=== PATIENT | male | born 1935 | race Caucasian/White ===

== ENCOUNTER 2017-12-16 09:18 | Emergency (ER) | payer MEDICARE, BC ==
[2017-12-16] MEDS ORDERED: LIDOCAINE URO-JET JELLY 2% 5 ML KIT URETHRAL ONE ×3 (09:56→11:27)
--- NOTE | 2017-12-16 10:00 | ED ---
General Adult HPI <AníbalTj - Last Filed: 12/16/17 11:27> - General Source: patient, RN notes reviewed Mode of arrival: wheelchair Limitations: no limitations <Patrick Whitmore - Last Filed: 12/16/17 14:06> - General Chief complaint: Urogenital Stated complaint: Blood in urine Time Seen by Provider: 12/16/17 09:39 - History of Present Illness Initial comments: Patient's an 82-year-old male presenting to the emergency room today with a chief complaint of difficulty urinating. Patient states that he usually self calf. Admits to history of prostate cancer. Patient states that he got up approximately 2 AM to try to self cath at that time was on able to. States that this morning he was able to self cath himself but not a large amount blood out. He does admit to increased pressure pain to the area. They called his urologist Dr. Phipps who advised him come here to [facility]. Patient denies any other complaints or symptoms. States is not on any blood thinners. He does admit that he's had hematuria for the past 3 years and they have been unable to figure out where the blood coming from. Patient admits that he was at [facility] approximately a month ago for the same complaint. Had to have a Lopez catheter left in place for irrigation. Patient denies any recent fever, chills, shortness of breath, chest pain, back pain, abdominal pain, nausea or vomiting, numbness or tingling, dysuria or hematuria, constipation or diarrhea, headaches or visual changes, or any other complaints. (Patrick Whitmore) - Related Data Home Medications Medication Instructions Recorded Confirmed Allopurinol [Zyloprim] 300 mg PO DAILY 12/16/17 12/16/17 Aspirin EC [Ecotrin Low Dose] 81 mg PO DAILY 12/16/17 12/16/17 Calcitriol 0.5 mcg PO MOTUWETHFR 12/16/17 12/16/17 Carvedilol [Coreg] 3.125 mg PO BID 12/16/17 12/16/17 Cholecalciferol [Vitamin D3] 1,000 unit PO DAILY 12/16/17 12/16/17 Furosemide [Lasix] 40 mg PO DAILY 12/16/17 12/16/17 Glimepiride [Amaryl] 4 mg PO AC-BRKFST 12/16/17 12/16/17 HYDROcodone/APAP 7.5-325MG [[place] 1 tab PO DAILY PRN 12/16/17 12/16/17 7.5-325] Levothyroxine Sodium [Synthroid] 25 mcg PO DAILY 12/16/17 12/16/17 Potassium Chloride ER [K-Dur 10] 10 meq PO DAILY 12/16/17 12/16/17 Simvastatin [Zocor] 20 mg PO HS 12/16/17 12/16/17 Tamsulosin HCl [Flomax] 0.4 mg PO DAILY 12/16/17 12/16/17 Timolol 0.5% Ophth Soln [Timoptic 1 drop BOTH EYES DAILY 12/16/17 12/16/17 0.5% Ophth Soln] amLODIPine [Norvasc] 5 mg PO DAILY 12/16/17 12/16/17 Previous Rx's Medication Instructions Recorded Sulfamethox-Tmp 800-160Mg [Bactrim 1 tab PO Q12HR #20 tab 12/16/17 DS 800-160 mg] Allergies Allergy/AdvReac Type Severity Reaction Status Date / Time No Known Allergies Allergy Verified 12/16/17 10:16 Review of Systems ROS Other: All systems not noted in ROS Statement are negative. <Tj Spangler - Last Filed: 12/16/17 11:27> ROS Other: All systems not noted in ROS Statement are negative. <Patrick Whitmore - Last Filed: 12/16/17 14:06> ROS Statement: Those systems with pertinent positive or pertinent negative responses have been documented in the HPI. Past Medical History Past Medical History: Cancer, Heart Failure, Diabetes Mellitus, Hyperlipidemia, Hypertension, Prostate Disorder History of Any Multi-Drug Resistant Organisms: None Reported Past Surgical History: Heart Catheterization, Prostate Surgery Additional Past Surgical History / Comment(s): colon surgery Past Psychological History: No Psychological Hx Reported Smoking Status: Former smoker Past Alcohol Use History: Daily Past Drug Use History: None Reported <Patrick Whitmore - Last Filed: 12/16/17 14:06> General Exam <Tj Spangler - Last Filed: 12/16/17 11:27> Limitations: no limitations <Patrick Whitmore - Last Filed: 12/16/17 14:06> - General Exam Comments Initial Comments: General: The patient is awake and alert, in no distress, and does not appear acutely ill. Eye: Pupils are equal, round and reactive to light, extra-ocular movements are intact. No nystagmus. There is normal conjunctiva bilaterally. No signs of icterus. Ears, nose, mouth and throat: There are moist mucous membranes and no oral lesions. Neck: The neck is supple, there is no tenderness or JVD. Gastrointestinal: Mild discomfort lower abdomen over the bladder. Musculoskeletal: Normal ROM, no tenderness. Strength 5/5. Sensation intact. Neurological: A&O x 3. CN II-XII intact, There are no obvious motor or sensory deficits. Coordination appears grossly intact. Speech is normal. Skin: Skin is warm and dry and no rashes or lesions are noted. Psychiatric: Cooperative, appropriate mood & affect, normal judgment. (Patrick Whitmore) Vital Signs 12/16/17 12/16/17 12/16/17 09:27 11:49 13:05 Temperature 98.4 F Pulse Rate 75 79 85 Respiratory 20 16 16 Rate Blood Pressure 110/63 117/68 133/65 O2 Sat by Pulse 100 100 100 Oximetry Medical Decision Making <Tj Spangler - Last Filed: 12/16/17 11:27> <Patrick Whitmore - Last Filed: 12/16/17 14:06> - Medical Decision Making Provider Attestation PA attestation: I personally saw and examined the patient. I have reviewed and agree with the PA's findings, including all diagnostic interpretations and treatment plans as written unless ohterwise stated. I was present for casas portions of any procedures performed and the inclusive time noted for any critical care statement. (Tj Spangler) Patient 82-year-old male presenting to the emergency room for hematuria. Patient unable to self cath at home. Full catheter was placed by nursing staff. A 16-Fr Lopez catheter placed and was used to irrigate bladder. We did contact patient's urologist Dr. davila who did come to see the patient here in emergency room also irrigated bladder. Patient has had no further clots over the last hour. At this time patient will be discharged home with full catheter in place to follow-up with urologist advised to call office Tuesday morning. Patient is advised that if Lopez catheter becomes clogged may return here to the emergency room. Patient and family state understanding and are in agreement. (Patrick Whitmore) - Lab Data Lab Results 12/16/17 Range/Units 10:49 Urine Color Dark Red Urine Appearance Bloody (Clear) Urine RBC >182 H (0-5) /hpf Urine WBC >182 H (0-5) /hpf Urine Bacteria Many H (None) /hpf Urine Mucus Many H (None) /hpf Disposition <Tj Spangler - Last Filed: 12/16/17 11:27> Is patient prescribed a controlled substance at d/c from ED?: No Time of Disposition: 13:53 <Patrick Whitmore - Last Filed: 12/16/17 14:06> Clinical Impression: Hematuria, Urinary retention Disposition: HOME SELF-CARE Condition: Good Instructions: Urinary Retention in Men (ED) Additional Instructions: Please use medication as discussed. Please follow-up with urologist next 2 days. Please return to emergency room if the symptoms increase or worsen or for any other concerns. Prescriptions: Sulfamethox-Tmp 800-160Mg [Bactrim DS 800-160 mg] 1 tab PO Q12HR #20 tab Referrals: Sixto Mercado MD [Primary Care Provider] - 1-2 days Orlando Davila MD [STAFF PHYSICIAN] - 1-2 days
[2017-12-16 11:14] LABS: Appearance,Urine Bloody (Clear)
[2017-12-16 11:15] LABS: Color,Urine Dark Red
[2017-12-16 11:18] LABS: RBC,Urine >182 /hpf (0-5); WBC,Urine >182 /hpf (0-5)
[2017-12-16 11:20] LABS: Bacteria,Urine Many /hpf; Mucus,Urine Many /hpf
[2017-12-16 11:49] VITALS: RESP 16
[2017-12-16 14:19] VITALS: BP 135/65; PULSE 70; TEMP 98.7
--- NOTE | 2017-12-17 14:42 | P.GSCN ---
History of Present Illness Consult date: 12/16/17 Reason for Consult: Gross hematuria Requesting physician: Patrick Whitmore History of present illness: He is an 82-year-old male diagnosed with prostate cancer in 1999. He was treated with external beam radiation therapy. 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 His most recent PSA level was 0.1 in March 2017. He has again developed gross hematuria with clots, resulting in difficulty voiding. Review of Systems - Constitutional Denies chills, Denies fever - Cardiovascular Denies shortness of breath - Respiratory Denies dyspnea - Gastrointestinal Denies nausea, Denies vomiting - Genitourinary Reports hematuria Past Medical History Past Medical History: Cancer, Heart Failure, Diabetes Mellitus, Hyperlipidemia, Hypertension, Prostate Disorder History of Any Multi-Drug Resistant Organisms: None Reported Past Surgical History: Heart Catheterization, Prostate Surgery Additional Past Surgical History / Comment(s): colon surgery Past Psychological History: No Psychological Hx Reported Smoking Status: Former smoker Past Alcohol Use History: Daily Past Drug Use History: None Reported Medications and Allergies Home Medications Medication Instructions Recorded Confirmed Type Allopurinol [Zyloprim] 300 mg PO DAILY 12/16/17 12/16/17 History Aspirin EC [Ecotrin Low Dose] 81 mg PO DAILY 12/16/17 12/16/17 History Calcitriol 0.5 mcg PO MOTUWETHFR 12/16/17 12/16/17 History Carvedilol [Coreg] 3.125 mg PO BID 12/16/17 12/16/17 History Cholecalciferol [Vitamin D3] 1,000 unit PO DAILY 12/16/17 12/16/17 History Furosemide [Lasix] 40 mg PO DAILY 12/16/17 12/16/17 History Glimepiride [Amaryl] 4 mg PO AC-BRKFST 12/16/17 12/16/17 History HYDROcodone/APAP 7.5-325MG [[place] 1 tab PO DAILY PRN 12/16/17 12/16/17 History 7.5-325] Levothyroxine Sodium [Synthroid] 25 mcg PO DAILY 12/16/17 12/16/17 History Potassium Chloride ER [K-Dur 10] 10 meq PO DAILY 12/16/17 12/16/17 History Simvastatin [Zocor] 20 mg PO HS 12/16/17 12/16/17 History Sulfamethox-Tmp 800-160Mg [Bactrim 1 tab PO Q12HR #20 tab 12/16/17 Rx DS 800-160 mg] Tamsulosin HCl [Flomax] 0.4 mg PO DAILY 12/16/17 12/16/17 History Timolol 0.5% Ophth Soln [Timoptic 1 drop BOTH EYES DAILY 12/16/17 12/16/17 History 0.5% Ophth Soln] amLODIPine [Norvasc] 5 mg PO DAILY 12/16/17 12/16/17 History Allergies Allergy/AdvReac Type Severity Reaction Status Date / Time No Known Allergies Allergy Verified 12/16/17 10:16 Surgical - Exam Vital Signs Temp Pulse Resp BP Pulse Ox 98.4 F 75 20 110/63 100 12/16/17 09:27 12/16/17 09:27 12/16/17 09:27 12/16/17 09:27 12/16/17 09:27 - General well developed, well nourished, no distress - Respiratory normal respiratory effort - Abdomen Abdomen: soft, non tender, no guarding, no rigid, no rebound - Genitourinary normal penis with no external lesions, testicles non-tender Results - Labs Abnormal Lab Results - Last 24 Hours (Table) 12/16/17 Range/Units 10:49 Urine RBC >182 H (0-5) /hpf Urine WBC >182 H (0-5) /hpf Urine Bacteria Many H (None) /hpf Urine Mucus Many H (None) /hpf Microbiology - Last 24 Hours (Table) 12/16/17 10:49 Urine Culture - Preliminary Urine,Catheterized Assessment and Plan (1) Gross hematuria Status: Acute Code(s): R31.0 - GROSS HEMATURIA SNOMED Code(s): 346827476 Plan: Because of the gross hematuria is almost certainly the patient's known radiation cystitis. When seen in the emergency room, he had a Lopez catheter in place. I irrigated the bladder multiple times using a piston syringe, removing multiple clots from the bladder. The catheter was irrigating well when I left him, and the plan is for him to be observed in the ER for approximately one hour. If the catheter continues to drain adequately, he will be discharged home with the Lopez catheter. I stressed the need for him to rest and drink plenty of fluids. He was instructed to call me in the office on December 19.
== END 2017-12-16 14:37 | disposition home or self-care (01) ==
LOC: EC 09:18
DX: R33.9 Retention of urine, unspecified (principal); R31.9 Hematuria, unspecified; I11.0 Hypertensive heart disease with heart failure; I50.9 Heart failure, unspecified; E11.9 Type 2 diabetes mellitus without complications; E78.5 Hyperlipidemia, unspecified; N42.9 Disorder of prostate, unspecified; Z85.46 Personal history of malignant neoplasm of prostate; Z87.891 Personal history of nicotine dependence; Z79.82 Long term (current) use of aspirin; Z79.899 Other long term (current) drug therapy; Z79.84 Long term (current) use of oral hypoglycemic drugs; Z95.818 Presence of other cardiac implants and grafts
CPT/HCPCS: 51702; 81001; 87077; 87086; 87186; 99283

== ENCOUNTER → 2018-01-02 | Outpatient (CLI) | payer MEDICARE, BC ==
[2018-01-02 14:20] LABS: Basophils % (A) 0 %; Eosinophils # (A) 0.1 k/uL (0-0.7); Eosinophils % (A) 2 %; HCT 34.5 % (39.0-53.0); HGB 11.1 gm/dL (13.0-17.5); Lymphocytes % (A) 33 %; MCH 31.8 pg (25.0-35.0); MCHC 32.2 g/dL (31.0-37.0); MCV 98.7 fL (80.0-100.0); Macrocytosis Slight; Mean Platelet Volume 6.9; Monocytes # (A) 0.3 k/uL (0-1.0); Monocytes % (A) 4 %; Neutrophils # (A) 3.5 k/uL (1.3-7.7); Neutrophils % (A) 59 %; Platelet Count 255 k/uL (150-450); Poikilocytosis Slight; RBC 3.49 m/uL (4.30-5.90); RDW 14.7 % (11.5-15.5); WBC 5.9 k/uL (3.8-10.6)
[2018-01-02 14:33] LABS: Calcium 9.6 mg/dL (8.4-10.2); Potassium 4.1 mmol/L (3.5-5.1)
== END | disposition home or self-care (01) ==
LOC: LABPAT 13:36
PROVIDERS: ATTEND Urology
DX: Z01.812 Encounter for preprocedural laboratory examination (principal); R31.0 Gross hematuria; N30.41 Irradiation cystitis with hematuria; E11.9 Type 2 diabetes mellitus without complications
CPT/HCPCS: 36415; 80048; 85025

== ENCOUNTER → 2018-01-03 | Day surgery (SDC) | payer MEDICARE, BC ==
[2018-01-02 15:22] VITALS: BMI 28.8
--- NOTE | 2018-01-02 20:58 | P.GSHP ---
History of Present Illness H&P Date: 01/02/18 Chief Complaint: Hematuria The patient is an 82-year-old white male diagnosed with prostate cancer in 1999. He was treated with external beam radiation therapy. He experiences intermittent gross hematuria as a result of radiation cystitis. He underwent Morgan catheter insertion in late November 2017 for urinary clot retention. The catheter has required irrigation of multiple occasions, and he has failed a voiding trial. He now comes for cystoscopy, evacuation of clot, and fulguration of bleeders. - Cardiovascular Cardiovascular: Denies chest pain - Respiratory Respiratory: Denies dyspnea - Musculoskeletal Musculoskeletal: Reports as per HPI Past Medical History Past Medical History: Cancer, Heart Failure, Diabetes Mellitus, Hyperlipidemia, Hypertension, Prostate Disorder Additional Past Medical History / Comment(s): Hx of Prostate and Bowel Cancer; radiation for prostate CA; Radiation Cystitis, has indwelling morgan History of Any Multi-Drug Resistant Organisms: None Reported Past Surgical History: Bowel Resection, Heart Catheterization, Prostate Surgery Additional Past Surgical History / Comment(s): Colonoscopy Past Anesthesia/Blood Transfusion Reactions: No Reported Reaction Smoking Status: Former smoker - Past Family History Mother Family Medical History: No Reported History Medications and Allergies Home Medications Medication Instructions Recorded Confirmed Type Allopurinol [Zyloprim] 300 mg PO DAILY 12/16/17 01/02/18 History Aspirin EC [Ecotrin Low Dose] 81 mg PO DAILY 12/16/17 01/02/18 History Calcitriol 0.5 mcg PO MOTUWETHFR 12/16/17 01/02/18 History Carvedilol [Coreg] 3.125 mg PO BID 12/16/17 01/02/18 History Cholecalciferol [Vitamin D3] 1,000 unit PO DAILY 12/16/17 01/02/18 History Furosemide [Lasix] 40 mg PO DAILY 12/16/17 01/02/18 History Glimepiride [Amaryl] 4 mg PO AC-BRKFST 12/16/17 01/02/18 History HYDROcodone/APAP 7.5-325MG [[place] 1 tab PO DAILY PRN 12/16/17 01/02/18 History 7.5-325] Levothyroxine Sodium [Synthroid] 25 mcg PO DAILY 12/16/17 01/02/18 History Potassium Chloride ER [K-Dur 10] 10 meq PO DAILY 12/16/17 01/02/18 History Simvastatin [Zocor] 20 mg PO HS 12/16/17 01/02/18 History Timolol 0.5% Ophth Soln [Timoptic 1 drop BOTH EYES DAILY 12/16/17 01/02/18 History 0.5% Ophth Soln] amLODIPine [Norvasc] 5 mg PO DAILY 12/16/17 01/02/18 History Allergies Allergy/AdvReac Type Severity Reaction Status Date / Time No Known Allergies Allergy Verified 01/02/18 15:12 Surgical - Exam - General well developed, well nourished, no distress - Respiratory normal expansion, clear to auscultation - Cardiovascular Rhythm: regular Abnormal Heart Sounds: no systolic murmur, no diastolic murmur, no rub, no S3 Gallop, no S4 Gallop, no click, no other - Abdomen Abdomen: soft, non tender - Genitourinary normal penis with no external lesions, testicles non-tender Assessment and Plan (1) Gross hematuria Status: Acute Code(s): R31.0 - GROSS HEMATURIA SNOMED Code(s): 058509428 (2) Radiation cystitis Status: Acute Code(s): N30.40 - IRRADIATION CYSTITIS WITHOUT HEMATURIA SNOMED Code(s): 62141072 Plan: The patient comes for cystoscopy, evacuation of clot, fulguration of bleeder. The rationale for the procedure was reviewed in detail with the patient. Potential risks include anesthesia, infection, and persistent bleeding.
[~2018-01-03] MED LIST: DEXAMETHASONE SOD PHOSPHATE 10 MG/ML 1 ML VIAL IV ONE; LACTATED RINGERS 1,000 ML IV SCH; LIDOCAINE 1% 20 ML VIAL (10MG/ML) FOR IV START INTRADERMA ONE; LIDOCAINE 1% INJ 10MG/ML (20 ML MDV) ONE; MIDAZOLAM 2 MG/2 ML VIAL IV PRN; MIDAZOLAM 2 MG/2 ML VIAL ONE; ONDANSETRON 4 MG/2 ML VIAL IVP ONE; PROPOFOL 10 MG/ML 20 ML VIAL IV ONE; SUCCINYLCHOLINE CHLORIDE 100 MG/5 ML SYR IV ONE; ceFAZolin 1,000 MG in DEXTROSE/WATER 1 50ML.BAG IVPB ONE; ePHEDrine SULFATE/0.9% NACL/PF 50 MG/5 ML SYRINGE IV ONE; fentaNYL (PF) 50 MCG/ML 2 ML AMP IV PRN; fentaNYL (PF) 50 MCG/ML 2 ML AMP ONE
[2018-01-03 13:08] LABS: Glucose,Whole Blood 110 mg/dL (75-99)
[2018-01-03 13:53] LABS: HCT 28.5 % (39.0-53.0); HGB 10.9 gm/dL (13.0-17.5); MCH 37.2 pg (25.0-35.0); MCV 97.8 fL (80.0-100.0); Mean Platelet Volume 6.6; Platelet Count 248 k/uL (150-450); Poikilocytosis Slight; RBC 2.92 m/uL (4.30-5.90); WBC 5.7 k/uL (3.8-10.6)
[2018-01-03 13:54] LABS: MCHC 38.1 g/dL (31.0-37.0)
[2018-01-03 14:26] LABS: Eosinophils # (M) 0.17 k/uL (0-0.7); Monocytes # (M) 0.51 k/uL (0-1.0); Neutrophils # (M) 3.02 k/uL (1.3-7.7); Neutrophils % (M) 53 %; Nucleated Red Blood Cells 0 /100 WBC (0-0); Total Cells Counted 100
[2018-01-03 15:11] VITALS: RESP 18; TEMP 98.2
--- NOTE | 2018-01-03 15:30 | P.OP ---
Date of Procedure: 01/03/18 Preoperative Diagnosis: Gross hematuria secondary to radiation cystitis Postoperative Diagnosis: Same Procedure(s) Performed: Cystoscopy, evacuation of clot, bladder biopsy, fulguration of bladder lesion ( medium) Anesthesia: NORIS Surgeon: Orlando Davila Estimated Blood Loss (ml): 5 IV fluids (ml): 400 Pathology: other (Left lateral bladder wall biopsy) Condition: stable Disposition: PACU Indications for Procedure: The patient is an 82-year-old white male diagnosed with prostate cancer in 1999. He was treated with external beam radiation therapy. He experiences intermittent gross hematuria as a result of radiation cystitis. He underwent Lopez catheter insertion in late November 2017 for urinary clot retention. The catheter has required irrigation of multiple occasions, and he has failed a voiding trial. He now comes for cystoscopy, evacuation of clot, and fulguration of bleeders. Operative Findings: Radiation cystitis involving the left lateral bladder wall, just cephalad to the vesical neck. Description of Procedure: The patient was taken to the operating room and placed in the dorsolithotomy position, with his legs supported in Abraham stirrups. The external genitalia was prepped and draped sterilely. The 30 lens was used to advance the 22- Thai Stortz cystoscopic sheath through the urethra and into the bladder under direct vision. The anterior urethra appeared unremarkable. The prostatic fossa was open, and the prostatic urethra was otherwise unremarkable. The bladder was examined in its entirety. Several clots were irrigated from the bladder. Both ureteral orifices were of normal anatomic location and configuration, and clear urine effluxed from both. No foreign bodies were seen. On the left lateral bladder wall, just cephalad to the vesical neck, a mucosal lesion is noted which is likely inflammatory in nature. There is surrounding erythema consistent with radiation cystitis. Using the cold cup biopsy forceps, the mucosal lesion was removed and sent for pathologic examination. The Bugbee electrode was used to fulgurate the biopsy site, as well as the entire area of erythema which measured several centimeters in diameter. Excellent hemostasis was attained. The remainder of the bladder appeared unremarkable. Slight oozing was noted from the right vesical neck, which was controlled with electrocautery. The cystoscope was removed, and an 18 -Thai Lopez catheter was placed. The return was clear. The patient tolerated the procedure well was taken to the recovery room in stable condition.
[2018-01-03 16:12] LABS: Glucose,Whole Blood 116 mg/dL (75-99)
[2018-01-03 16:28] VITALS: BP 146/76; PULSE 68
== END | disposition home or self-care (01) ==
LOC: OR 12:41
PROVIDERS: ATTEND Urology
DX: N30.41 Irradiation cystitis with hematuria (principal); Z92.3 Personal history of irradiation; Z85.46 Personal history of malignant neoplasm of prostate; I11.0 Hypertensive heart disease with heart failure; I50.9 Heart failure, unspecified; E11.9 Type 2 diabetes mellitus without complications; E78.5 Hyperlipidemia, unspecified; Z85.038 Personal history of other malignant neoplasm of large intestine; Z79.84 Long term (current) use of oral hypoglycemic drugs; Z79.82 Long term (current) use of aspirin; Z79.890 Hormone replacement therapy; Z79.899 Other long term (current) drug therapy; Z87.891 Personal history of nicotine dependence
CPT/HCPCS: 52235; 86900; 86901; 88305; 85025; 86850; J2250; J1100; J2405; J2001; J3010; J0330; J2704